=== PATIENT | female | born 1960 | race Caucasian/White ===

== ENCOUNTER → 2018-05-24 | Outpatient (CLI) | payer OTHER ==
[~2018-05-24] MED LIST: GADOBUTROL 10 ML VIAL IVP ONE
== END ==
LOC: FIMAGING 12:47
PROVIDERS: ATTEND Internal Medicine
DX: R90.89 Other abnormal findings on diagnostic imaging of central nervous system (principal); R90.82 White matter disease, unspecified
CPT/HCPCS: A9585

== ENCOUNTER → 2018-06-22 | Outpatient (CLI) | payer OTHER | DX: R40.4 Transient alteration of awareness (principal); R90.82 White matter disease, unspecified; I10 Essential (primary) hypertension ==

== ENCOUNTER → 2019-05-02 | Outpatient (CLI) | payer OTHER | LOC: FIMAGING 13:59 ==